=== PATIENT | male | born 1945 | race Caucasian/White ===

== ENCOUNTER → 2021-09-14 | Outpatient (CLI) | payer OTHER, MEDICARE | LOC: EMI 16:19 | DX: M48.061 Spinal stenosis, lumbar region without neurogenic claudication (principal) | CPT/HCPCS: 72148 ==

== ENCOUNTER → 2021-09-20 | Outpatient (CLI) | payer MEDICARE ==
[~2021-09-20] MED LIST: ATORVASTATIN CA80 MG PO; CLARITIN10 MG PO; LOW DOSE ASPIRI81 MG PO; MELOXICAM7.5 MG PO; METOPROLOL SUCC50 MG PO; OMEPRAZOLE20 M1 PO; PAXIL40 MG PO; TERAZOSIN HCL10 MG PO
== END ==
LOC: HEART 5 08:00
DX: I25.10 Atherosclerotic heart disease of native coronary artery without angina pectoris (principal); Z98.61 Coronary angioplasty status; I10 Essential (primary) hypertension; I25.2 Old myocardial infarction; R94.39 Abnormal result of other cardiovascular function study
CPT/HCPCS: 78452; A9502; J2785

== ENCOUNTER → 2021-09-21 | Outpatient (CLI) | payer MEDICARE ==
[2021-09-21 11:05] LABS: HEMOGLOBIN 14.5 gm/dl (14.0-17.5); RED BLOOD COUNT 4.51 M/UL (4.20-5.50); WHITE BLOOD COUNT 9.9 K/UL (4.5-11.0)
[2021-09-21 11:23] LABS: BUN/CREATININE RATIO 27 (0-10)
== END ==
LOC: OPSV2 10:00 → EDSTATUS 10:00 → OPSV2 10:06
PROVIDERS: Orthopaedic Surgery
DX: Z01.818 Encounter for other preprocedural examination (principal); M48.061 Spinal stenosis, lumbar region without neurogenic claudication; M51.16 Intervertebral disc disorders with radiculopathy, lumbar region; R94.31 Abnormal electrocardiogram [ECG] [EKG]
CPT/HCPCS: 71046; 80048; 81001; 83036; 85027; 87081; 93005

== ENCOUNTER → 2021-09-22 | Outpatient (CLI) | payer MEDICARE | LOC: ECHO 09:00 → KOH-I 09:00 | DX: M48.061 Spinal stenosis, lumbar region without neurogenic claudication (principal); I25.10 Atherosclerotic heart disease of native coronary artery without angina pectoris; Z98.61 Coronary angioplasty status; I10 Essential (primary) hypertension; I25.2 Old myocardial infarction; M48.07 Spinal stenosis, lumbosacral region; M51.36 Other intervertebral disc degeneration, lumbar region; I51.7 Cardiomegaly; I35.2 Nonrheumatic aortic (valve) stenosis with insufficiency | CPT/HCPCS: ECHO; 72131; 93306 ==

== ENCOUNTER → 2021-10-03 | Outpatient (CLI) | payer MEDICARE ==
[~2021-10-03] MED LIST changes: +ACETAMINOPHEN500 MG PO; +FLOMAX 0.4 MG0.4 MG PO; +GABAPENTIN300 MG PO; +IBUPROFEN600 MG PO; +POLYETHYLENE GL17 GM PO; +ROXICODONE TAB 55 MG PO; +STIMULANT LAXA1 EACH PO; +VIAGRA100 MG PO
[2021-10-03 11:54] LABS: BUN/CREATININE RATIO 28 (0-10)
== END ==
LOC: LAB 10:49
PROVIDERS: Orthopaedic Surgery
DX: Z53.9 Procedure and treatment not carried out, unspecified reason (principal)
CPT/HCPCS: 36415; 80048; 85610; 85730; 86850; 86900; 86901; 86920; 86927; P9016; P9017

== ENCOUNTER 2021-10-04 05:21 | Inpatient (IN) | payer MEDICARE ==
[~2021-10-04] VITALS: Ht 177.8 cm; Wt 106.6 kg
[~2021-10-04 05:21] MED LIST changes: -ACETAMINOPHEN500 MG PO; -FLOMAX 0.4 MG0.4 MG PO; -GABAPENTIN300 MG PO; -IBUPROFEN600 MG PO; -POLYETHYLENE GL17 GM PO; -ROXICODONE TAB 55 MG PO; -STIMULANT LAXA1 EACH PO; -VIAGRA100 MG PO
[2021-10-04 12:13] LABS: HEMOGLOBIN 12.3 gm/dl (14.0-17.5)
[2021-10-04 15:14] LABS: HEMOGLOBIN 10.8 gm/dl (14.0-17.5)
[2021-10-04 16:07] LABS: BUN/CREATININE RATIO 24 (0-10)
[2021-10-04 17:01] LABS: HEMOGLOBIN 12.7 gm/dl (14.0-17.5); RED BLOOD COUNT 4.03 M/UL (4.20-5.50); WHITE BLOOD COUNT 15.9 K/UL (4.5-11.0)
[2021-10-04 17:22] LABS: BUN/CREATININE RATIO 24 (0-10)
[2021-10-04] MEDS ORDERED: VIAGRA100 MG PO (18:27)
[2021-10-05 03:51] LABS: HEMOGLOBIN 13.1 gm/dl (14.0-17.5); RED BLOOD COUNT 4.03 M/UL (4.20-5.50); WHITE BLOOD COUNT 14.9 K/UL (4.5-11.0)
[2021-10-05 10:05] LABS: BUN/CREATININE RATIO 26 (0-10)
[2021-10-06 03:58] LABS: WHITE BLOOD COUNT 14.9 K/UL (4.5-11.0)
[2021-10-06 04:01] LABS: RED BLOOD COUNT 3.48 M/UL (4.20-5.50)
--- NOTE | 2021-10-06 23:00 | NUR ---
PATIENT HAS ORDERS TO BLADDER SCAN 6 HOURS AFTER PREVIOUS STRAIGHT CATH. AT 2300 INITAL SCAN SHOWED GREATER THAN 450. PATIENT TRIED URINATING AND HAD 275 OUT. FOLLOW UP SCAN SHOWED GREATER THAN 250. DID NOT INSERT SENA CATH SINCE PATIENT WAS ABLE TO VOID.
[2021-10-07 04:56] LABS: HEMOGLOBIN 9.8 gm/dl (14.0-17.5)
[2021-10-07 05:24] LABS: BUN/CREATININE RATIO 26 (0-10)
[2021-10-07 05:27] LABS: RED BLOOD COUNT 3.1 M/UL (4.20-5.50); WHITE BLOOD COUNT 10.8 K/UL (4.5-11.0)
[2021-10-08 03:56] LABS: HEMOGLOBIN 9.1 gm/dl (14.0-17.5); RED BLOOD COUNT 2.87 M/UL (4.20-5.50); WHITE BLOOD COUNT 10.4 K/UL (4.5-11.0)
[2021-10-08 04:29] LABS: BUN/CREATININE RATIO 23 (0-10)
[2021-10-09 04:42] LABS: HEMOGLOBIN 9.9 gm/dl (14.0-17.5); RED BLOOD COUNT 3.05 M/UL (4.20-5.50); WHITE BLOOD COUNT 12.2 K/UL (4.5-11.0)
[2021-10-09 05:17] LABS: BUN/CREATININE RATIO 24 (0-10)
[2021-10-10 04:10] LABS: HEMOGLOBIN 9.5 gm/dl (14.0-17.5); WHITE BLOOD COUNT 11.9 K/UL (4.5-11.0)
[2021-10-10 04:39] LABS: BUN/CREATININE RATIO 30 (0-10)
[2021-10-11 05:00] LABS: HEMOGLOBIN 10.1 gm/dl (14.0-17.5); RED BLOOD COUNT 3.2 M/UL (4.20-5.50); WHITE BLOOD COUNT 12.1 K/UL (4.5-11.0)
[2021-10-11 05:34] LABS: BUN/CREATININE RATIO 28 (0-10)
[2021-10-12 05:37] LABS: RED BLOOD COUNT 3.17 M/UL (4.20-5.50); WHITE BLOOD COUNT 11.1 K/UL (4.5-11.0)
[2021-10-12 06:21] LABS: BUN/CREATININE RATIO 22 (0-10)
[2021-10-13 05:20] LABS: RED BLOOD COUNT 3.23 M/UL (4.20-5.50); WHITE BLOOD COUNT 11.2 K/UL (4.5-11.0)
[2021-10-13 05:28] LABS: BUN/CREATININE RATIO 28 (0-10)
[2021-10-13] MEDS ORDERED: STIMULANT LAXA1 EACH PO (09:22)
[2021-10-13] MEDS ORDERED: GABAPENTIN300 MG PO (09:22)
[2021-10-13] MEDS ORDERED: POLYETHYLENE GL17 GM PO (09:22)
[2021-10-13] MEDS ORDERED: ROXICODONE TAB 55 MG PO (09:22)
[2021-10-13] MEDS ORDERED: IBUPROFEN600 MG PO (09:22)
[2021-10-13] MEDS ORDERED: ACETAMINOPHEN500 MG PO (09:22)
[2021-10-13] MEDS ORDERED: FLOMAX 0.4 MG0.4 MG PO (09:22)
== END 2021-10-13 12:03 | DRG 460 ==
LOC: OR 05:21 → CCU 17:54
PROVIDERS: Internal Medicine; ADMIT Orthopaedic Surgery
PROC: 01NR0ZZ Release Sacral Nerve, Open Approach (ICD-10-PCS; 2021-10-04)
PROC: 0SG10AJ Fusion of 2 or more Lumbar Vertebral Joints with Interbody Fusion Device, Posterior Approach, Anterior Column, Open Approach (ICD-10-PCS; 2021-10-04)
PROC: 4A11X4G Monitoring of Peripheral Nervous Electrical Activity, Intraoperative, External Approach (ICD-10-PCS; 2021-10-04)
PROC: 30233N1 Transfusion of Nonautologous Red Blood Cells into Peripheral Vein, Percutaneous Approach (ICD-10-PCS; 2021-10-04)
PROC: 0SG30AJ Fusion of Lumbosacral Joint with Interbody Fusion Device, Posterior Approach, Anterior Column, Open Approach (ICD-10-PCS; principal; 2021-10-04 07:30)
PROC: 0ST20ZZ Resection of Lumbar Vertebral Disc, Open Approach (ICD-10-PCS; 2021-10-04 07:30)
PROC: 01NB0ZZ Release Lumbar Nerve, Open Approach (ICD-10-PCS; 2021-10-04 07:30)
DX: M48.062 Spinal stenosis, lumbar region with neurogenic claudication (principal); M54.16 Radiculopathy, lumbar region; E78.5 Hyperlipidemia, unspecified; F32.A Depression, unspecified; Z96.652 Presence of left artificial knee joint; K21.9 Gastro-esophageal reflux disease without esophagitis; G89.29 Other chronic pain; F41.9 Anxiety disorder, unspecified; I25.10 Atherosclerotic heart disease of native coronary artery without angina pectoris; I10 Essential (primary) hypertension; E66.09 Other obesity due to excess calories; Z96.611 Presence of right artificial shoulder joint; R50.9 Fever, unspecified; I95.9 Hypotension, unspecified; N40.0 Benign prostatic hyperplasia without lower urinary tract symptoms; E87.6 Hypokalemia; M43.16 Spondylolisthesis, lumbar region; M54.9 Dorsalgia, unspecified; I25.2 Old myocardial infarction; Z98.890 Other specified postprocedural states; Z79.899 Other long term (current) drug therapy; Z79.82 Long term (current) use of aspirin; Z87.442 Personal history of urinary calculi; Z68.33 Body mass index [BMI] 33.0-33.9, adult; Z95.5 Presence of coronary angioplasty implant and graft; E66.9 Obesity, unspecified
CPT/HCPCS: 36415; 36430; 71045; 72100; 72110; 76000; 80048; 80053; 81001; 83605; 83735; 84100; 85014; 85018; 85025; 85027; 85610; 85730; 86850; 86900; 86901; 86920; 87040; 87086; 93005; 97110-GP-CQ; 97116; 97116-GP-CQ; 97162; 97166; 97530; 97530-GP-CQ; C1713; C1762; C1781; J0360; J0690; J1100; J1170; J1644; J2001; J2185; J2405; J2704; J3010; J3370; J7040; P9016; P9017; U0002